=== PATIENT | female | born 1965 | race Two or more races ===

== ENCOUNTER 2023-03-10 11:02 | Emergency (ER) | payer SELFPAY ==
[2023-03-10 11:12] VITALS: BP 147/72; PULSE 69; RESP 18; TEMP 98.2; BMI 41.9
[2023-03-10] MEDS ORDERED: ACETAMINOPHEN 500 MG TABLET (FP) PO ONE (11:21)
[2023-03-10] MEDS ORDERED: KETOROLAC TROMETHAMINE 30 MG/1 ML VIAL IM ONE (11:21)
[2023-03-10] MEDS ORDERED: KETOROLAC TROMETHAMINE 30 MG/1 ML VIAL ONE (11:26)
== END 2023-03-10 12:38 | disposition home or self-care (01) ==
LOC: JER 11:02 → JERFT 11:02
PROC: 3E0233Z Introduction of Anti-inflammatory into Muscle, Percutaneous Approach (ICD-10-PCS; principal; 2023-03-10)
DX: M79.671 Pain in right foot (principal); M77.8 Other enthesopathies, not elsewhere classified
CPT/HCPCS: 73630-TC-RT-FY; 99284-25